=== PATIENT | male | born 1980 | race African-American/Black ===

== ENCOUNTER 2017-07-04 21:32 | Inpatient (IN) | payer OTHER ==
[2017-07-04] MEDS ORDERED: Heparin VIAL(*) 5000 UNITS/ML VIAL (FIVE THOUSAND) ONE (21:35)
[2017-07-04] MEDS ORDERED: Ticagrelor* 90 MG TAB PO ONE (21:39)
[2017-07-04] MEDS ORDERED: VERAPAMIL 2.5 MG/ML 4 ML VIAL ONE (21:50)
[2017-07-04] MEDS ORDERED: Heparin(*) 1000 UNIT/ML 10 ML VIAL CATH LAB IV ONE (21:50)
[2017-07-04] MEDS ORDERED: nitroGLYCERIN DRIP* 250 ML ONE (21:50)
[2017-07-04] MEDS ORDERED: Midazolam* 1 MG/ML 5 ML VIAL (5 MG) ONE (21:51)
[2017-07-04] MEDS ORDERED: fentaNYL* 50 MCG/ML 2 ML VIAL (100 MCG VIAL) ONE (21:51)
[2017-07-04] MEDS ORDERED: Heparin 2 UNITS/ML IVPREMIX* 2,000 ML IV ONE (21:51)
[2017-07-04] MEDS ORDERED: Lidocaine 1% INJ* 10 MG/ML 30 ML SDV ONE (21:51)
[2017-07-04] MEDS ORDERED: Iohexol 350 (CONTRAST) 200 ML MDV IV ONE (21:51)
[2017-07-04 21:58] LABS: Hematocrit 45 % (42-52); Hemoglobin 15.4 g/dl (14.0-18.0); Mean Corpuscular HGB Conc 35 g/dl (31-36); Mean Corpuscular Hemoglobin 31 pg (27-31); Mean Corpuscular Volume 90 fL (80-94); Mean Platelet Volume 9 um3 (7.4-10.4); Red Blood Count 4.98 10^6/ul (4.0-5.4); Red Cell Distribution Width 14 % (10.5-15); White Blood Count 15.2 10^3/ul (3.5-10.8)
[2017-07-04] MEDS ORDERED: Heparin VIAL(*) 5000 UNITS/ML VIAL (FIVE THOUSAND) IV ONE (22:00)
[2017-07-04 22:14] LABS: Albumin 4.6 g/dL (3.2-5.2); BUN/Creatinine Ratio 8.7 (8-20); Calcium 9.9 mg/dL (8.6-10.3); EGFR African American 74.2 (>60); EGFR Non-African American 57.7 (>60); Globulin 3.1 g/dL (2-4); Magnesium 2.4 mg/dL (1.9-2.7); Potassium 3.9 mmol/L (3.5-5.0); Total Bilirubin 0.7 mg/dL (0.2-1.0); Total Protein 7.7 g/dL (6.4-8.9)
--- NOTE | 2017-07-04 22:16 | RAD ---
Indication: Chest pain. STEMI. Comparison: No relevant prior exams available on the [facility] [place] for comparison. Technique: Upright AP 2148 hours Report: Subcutaneous pacemaker pads in place. Negative for cardiomegaly. Unremarkable central pulmonary vasculature. No focal pulmonary lesion, compelling alveolar consolidation, pleural effusion, pneumothorax. IMPRESSION: No evidence for pulmonary edema or other acute cardiac or pulmonary process.
[2017-07-04 22:21] LABS: Troponin I 4.75 ng/mL (<0.04)
[2017-07-04 22:38] LABS: Hematocrit 43 % (42-52); Hemoglobin 14.7 g/dl (14.0-18.0); Mean Corpuscular HGB Conc 34 g/dl (31-36); Mean Corpuscular Hemoglobin 30 pg (27-31); Mean Corpuscular Volume 89 fL (80-94); Mean Platelet Volume 8 um3 (7.4-10.4); Red Blood Count 4.83 10^6/ul (4.0-5.4); Red Cell Distribution Width 14 % (10.5-15); White Blood Count 14.1 10^3/ul (3.5-10.8)
[2017-07-04 22:39] LABS: Benzodiazepine Urine Screen None Detected (None Detect)
[2017-07-04 22:52] LABS: BUN/Creatinine Ratio 10.6 (8-20); Calcium 9.2 mg/dL (8.6-10.3); EGFR African American 102.8 (>60); EGFR Non-African American 79.9 (>60); Potassium 3.6 mmol/L (3.5-5.0)
[2017-07-04] MEDS ORDERED: NS 0.9% 1000 ML* 1,000 ML IV SCH (23:15)
[2017-07-04] MEDS ORDERED: Isosorbide Mononitrate ER TAB* 30 MG ONE (23:32)
[2017-07-04] MEDS ORDERED: Acetaminophen TAB* 325 MG PO PRN (23:32)
[2017-07-04] MEDS ORDERED: Zolpidem TAB* 10 MG PO PRN (23:33)
[2017-07-04] MEDS ORDERED: Metoprolol Tartrate TAB* 25 MG ONE (23:33)
[2017-07-04] MEDS: Isosorbide Mononitrate ER TAB* 30 MG PO SCH (23:34)
[2017-07-04] MEDS ORDERED: Isosorbide Mononitrate ER TAB* 30 MG PO SCH (23:45)
[2017-07-04] MEDS ORDERED: Metoprolol Tartrate TAB* 25 MG PO SCH (23:45)
[2017-07-05] MEDS ORDERED: nitroGLYCERIN DRIP* 250 ML ONE (01:52)
[2017-07-05] MEDS ORDERED: Al Hydrox/Mg Hydrox/Simet LIQ* 30 ML UDC ONE (02:15)
[2017-07-05] MEDS ORDERED: oxyCODONE/Acetamin 5/325 MG* TAB ONE (02:15)
[2017-07-05] MEDS ORDERED: Omeprazole CAP* 20 MG PO SCH (02:20)
[2017-07-05] MEDS ORDERED: oxyCODONE/Acetamin 5/325 MG* TAB PO PRN (02:22)
[2017-07-05] MEDS ORDERED: nitroGLYCERIN DRIP* 25,000 MCG in PREMIX* 0 ML IV SCH (03:00)
[2017-07-05] MEDS ORDERED: NS 0.9% 1000 ML* 1,000 ML IV SCH (04:00)
[2017-07-05 04:56] LABS: Hematocrit 40 % (42-52); Hemoglobin 13.8 g/dl (14.0-18.0); Mean Corpuscular HGB Conc 34 g/dl (31-36); Mean Corpuscular Hemoglobin 31 pg (27-31); Mean Corpuscular Volume 90 fL (80-94); Mean Platelet Volume 8 um3 (7.4-10.4); Red Blood Count 4.47 10^6/ul (4.0-5.4); Red Cell Distribution Width 14 % (10.5-15); White Blood Count 11.2 10^3/ul (3.5-10.8)
[2017-07-05 05:12] LABS: Albumin 3.9 g/dL (3.2-5.2); BUN/Creatinine Ratio 8.8 (8-20); Calcium 8.6 mg/dL (8.6-10.3); EGFR African American 93.4 (>60); EGFR Non-African American 72.6 (>60); Globulin 2.3 g/dL (2-4); HDL Cholesterol 25.7 mg/dL; Potassium 3.5 mmol/L (3.5-5.0); Total Bilirubin 0.6 mg/dL (0.2-1.0); Total Protein 6.2 g/dL (6.4-8.9)
[2017-07-05 05:18] LABS: Troponin I 54.15 ng/mL (<0.04)
--- NOTE | 2017-07-05 06:46 | ED ---
Juyd Odell Rebecca, scribed for Nga Boyleuel on 07/04/17 at 2151 . HPI Chest Pain - HPI Summary HPI Summary: Pt is a 37 y/o M BIBA who presents to ED c/o central CP. Pain began suddenly at 1845 tonight while washing his leg and has been constant since onset. Pain is currently mild, ranked 2/10. He was treated with 4 81 mg ASA and 2 NTG SOFTWARE QUALITY MANAGER. Additionally c/o N/V. No prior similar episodes of CP. No PMHx or FHx CAD. Only daily medication is Ibuprofen for his back pain. - History of Current Complaint Chief Complaint: EDChestPainROMI Hx Obtained From: Patient Onset/Duration: Started Hours Ago, Still Present Time of Onset: 18:45 Timing: Constant Current Severity: Mild Pain Intensity: 2 Pain Scale Used: 0-10 Numeric Chest Pain Location: Mid Sternal Aggravating Factor(s): Nothing Alleviating Factor(s): Nothing Associated Signs and Symptoms: Positive: Nausea, Vomiting PMH/Surg Hx/FS Hx/Imm Hx Endocrine/Hematology History: Denies: Hx Diabetes Cardiovascular History: Denies: Hx Coronary Artery Disease Infectious Disease History: Yes Infectious Disease History: Denies: Traveled Outside the [place] in Last 30 Days - Family History Known Family History: Negative: Cardiac Disease - Social History Alcohol Use: None Substance Use Type: Reports: Marijuana Smoking Status (MU): Unknown if Ever Smoked Review of Systems Positive: Chest Pain Positive: Vomiting, Nausea All Other Systems Reviewed And Are Negative: Yes Physical Exam - Summary Physical Exam Summary: Appearance: Well appearing, no pain distress Skin: warm, dry, reflects adequate perfusion Head/face: normal Eyes: EOMI, ESVIN ENT: normal Neck: supple, nontender Respiratory: CTA, breath sounds present Cardiovascular: RRR, pulses symmetrical Abdomen: nontender, soft Bowel: present Musculoskeletal: normal, strength/ROM intact Neuro: normal, sensory motor intact, A&Ox3 Triage Information Reviewed: Yes Vital Signs On Initial Exam: Initial Vitals Temp Pulse Resp BP Pulse Ox 98.2 F 92 23 128/94 97 07/04/17 21:41 07/04/17 21:41 07/04/17 21:41 07/04/17 21:41 07/04/17 21:41 Vital Signs Reviewed: Yes Diagnostics - Vital Signs Vital Signs Temp Pulse Resp BP Pulse Ox 07/04/17 21:41 98.2 F 92 23 128/94 97 - Laboratory Result Diagrams: 07/04/17 21:50 07/04/17 21:50 Lab Statement: Any lab studies that have been ordered have been reviewed, and results considered in the medical decision making process. - Radiology CXR Xray Interpretation: No Acute Changes - No evidence for pulmonary edema or other acute cardiac or pulmonary process. ED phsyicain reviewed radiology report and agrees. Radiology Interpretation Completed By: Radiologist - EKG 2132 Cardiac Rate: NL - [address] Segment: Non-Specific - ST elevations in the inferior leads EKG Interpretation: Inferior wall MN Chest Pain Course/Dx - Course Assessment/Plan: Pt is a 37 y/o M BIBA who presents to ED c/o central CP. Pain began suddenly at 1845 tonight while washing his leg and has been constant since onset. Pain is currently mild, ranked 2/10. He was treated with 4 81 mg ASA and 2 NTG SOFTWARE QUALITY MANAGER. Additionally c/o N/V. No prior similar episodes of CP. No PMHx or FHx CAD. Only daily medication is Ibuprofen for his back pain. CXR reveals no acute findings. EKG shows inferior lead ST elevations with an inferior wall MN. STEMI code called at 2130. In the ED course, pt received Heparin and Brilinta. Discussed care of pt with Dr. Ortega at 2137 who accepts pt for admisison and will evaluate the pt in the ED. Pt will be admitted to Dr. Ortega's care with Dx of chest pain and inferior wall STEMI. He understands and agrees. - Diagnoses Provider Diagnoses: Chest pain, ST elevation myocardial infarction (STEMI) of inferior wall During the Visit The Following Alert/Code Occurred: STEMI - Called at 2130 - Provider Notifications Discussed Care Of Patient With: Holden Ortega Time Discussed With Above Provider: 21:38 Instructed by Provider To: Other - Accepts pt and will evaluate him in the ED. - Critical Care Time Critical Care Time: 30-74 min - 30 minutes Discharge - Discharge Plan Condition: Stable Disposition: ADMITTED TO [facility] The documentation as recorded by the Judy wiley Rebecca accurately reflects the service I personally performed and the decisions made by , Ross Boyle.
[2017-07-05] MEDS ORDERED: Atorvastatin* 80 MG TAB PO ONE (07:23)
[2017-07-05] MEDS ORDERED: Potassium Chlor TAB* 20 MEQ TAB.ER PO ONE (07:27)
[2017-07-05] MEDS: Aspirin EC Low Dose* 81 MG TAB.EC PO SCH ×2 (08:08→08:55)
[2017-07-05] MEDS: Captopril TAB* 12.5 MG PO SCH ×2 (08:50→13:06)
[2017-07-05] MEDS ORDERED: Metoprolol Tartrate TAB* 25 MG PO SCH (09:00)
[2017-07-05] MEDS ORDERED: Pantoprazole TAB (NF) 40 MG TAB PO SCH (09:00)
[2017-07-05] MEDS ORDERED: Ticagrelor* 90 MG TAB PO SCH (09:00)
[2017-07-05] MEDS: Isosorbide Mononitrate ER TAB* 30 MG PO SCH (09:59)
[2017-07-05 10:58] LABS: Troponin I 43.62 ng/mL (<0.04)
--- NOTE | 2017-07-05 11:03 | ECHO ---
Patient: LIZZIE CORRIGAN [id number] [facility] Rec#: [id number] : 1980 Date: 07/05/2017 Age: 37y Height: 177.8 cm / 70.0 in Weight: 91.63 kg / 202.0 lbs Sex: M BSA: 2.1 Room#: [facility] Admit Date#: 07/04/2017 Type: Inpatient Referring: Holden Ortega MD Reading: Holden Ortega MD Education Department Registrar: JANNA Education Department Registrar: Ciara Akins RDCS Transthoracic Echocardiogram Indication: STEMI BP: 100/68 Rhythm: Bradycardia Findings History: From [facility] [place] with STEMI. + family hx, nonsmoker. Technical Comments: The study quality is good. Completed at 0758. Left Ventricle: Mild concentric left ventricular hypertrophy is observed. There is mild to moderately decreased left ventricular systolic function. There is global mild to moderate hypokinesis with moderate to severe focal inferior low posterolateral wall hypokinesis. The estimated ejection fraction is 40-45%. There is no consistent Doppler evidence of clinically significant diastolic dysfunction. Left Atrium: The left atrial chamber size is normal. Right Ventricle: The right ventricle is mildly dilated. The right ventricular global systolic function is mildly reduced. Right Atrium: The right atrial cavity size is normal. A patent foramen ovale is visualized. A patent foramen ovale is demonstrated by color Doppler and agitated contrast. There is evidence of an atrial septal aneurysm. Aortic Valve: The aortic valve is trileaflet. There is no evidence of aortic regurgitation. There is no evidence of aortic stenosis. Mitral Valve: The mitral valve leaflets appear normal. The anterior leaflet of the mitral valve is thickened. There is prolapse of the anterior leaflet of the mitral valve. The degree of prolapse appears to be very mild at best. There is a trace of mitral regurgitation. There is no evidence of mitral stenosis. Tricuspid Valve: The tricuspid valve leaflets are normal. There is trace tricuspid regurgitation. Unable to estimate the right ventricular systolic pressure. There is no tricuspid stenosis. Pulmonic Valve: The pulmonic valve appears normal. There is moderate pulmonic regurgitation. There is no pulmonic stenosis. Pericardium: The pericardium appears normal. Aorta: There is no dilatation of the ascending aorta. There is no dilatation of the aortic arch. There is no dilation of the aortic root. Pulmonary Artery: The main pulmonary artery appears normal. Venous: The venous system is not well visualized. Contrast: Normal saline was used as contrast for the bubble study. Intravenous contrast was used to help determine presence of intracardiac shunting. Conclusions Mild concentric left ventricular hypertrophy is observed. There is mild to moderately decreased left ventricular systolic function. There is global mild to moderate hypokinesis with moderate to severe focal inferior low posterolateral wall hypokinesis. The estimated ejection fraction is 40-45%. The right ventricle is mildly dilated. The right ventricular global systolic function is mildly reduced. A patent foramen ovale is demonstrated by color Doppler with right to left flow on bubble study. There is evidence of an atrial septal aneurysm. There is prolapse of the anterior leaflet of the mitral valve. The degree of prolapse appears to be very mild at best. There is a trace of mitral regurgitation. There is trace tricuspid regurgitation. There is moderate pulmonic regurgitation. No reports from prior studies are offered for comparison. Measurements Name Value Normal Range RVIDd (AP) 2D 2.7 cm (0.9 - 2.6) RVDdMajor (2D) 4.8 cm (2.2 - 4.4) RAd ISD 4CH 5.4 cm (3.4 - 4.9) RA (A4C)W 3.9 cm (2.9 - 4.6) IVSd (2D) 1.3 cm (0.6 - 1) LVPWd (2D) 1 cm (0.6 - 1) LVIDd (2D) 3.9 cm (3.6 - 5.4) LVIDs (2D) 2.9 cm - LV FS (2D) 24 % (25 - 45) Aortic Annulus 2 cm (1.4 - 2.6) Ao root diameter (2D) 3 cm (2.1 - 3.5) Ascending Ao 2.7 cm (2.1 - 3.4) Aortic arch 2.6 cm (1.8 - 3.4) Descending Ao 0.5 cm - LA dimension (AP) 2D 2.9 cm (2.3 - 3.8) LAd ISD 4CH 5.2 cm (2.9 - 5.3) LA ISD 4CH W 3.8 cm (2.5 - 4.5) Name Value Normal Range LA ESV SP 4CH (A/L) 46 ml - LA ESV SP 2CH (A/L) 37 ml - LA ESV BP (A/L) 46 ml - LA ESV BP (A/L) index 21.82 ml/m2 - LA ESV SP 4CH (MOD) 42 ml - LA ESV SP 2CH (MOD) 36 ml - Name Value Normal Range MV E-wave Vmax 0.7 m/sec - MV deceleration time 220 msec - MV A-wave Vmax 0.6 m/sec - MV E:A ratio 1.17 ratio - LV septal e' Vmax 0.1 m/sec - LV lateral e' Vmax 0.11 m/sec - LV E:e' septal ratio 7 ratio - LV E:e' lateral ratio 6.36 ratio - Name Value Normal Range AV Vmax 1 m/sec - AV VTI 22 cm - AV peak gradient 4.3 mmHg - AV mean gradient 1.84 mmHg - LVOT Vmax 0.8 m/sec - LVOT VTI 17.2 cm - LVOT peak gradient 2.59 mmHg - LVOT mean gradient 1.29 mmHg - Name Value Normal Range PV Vmax 0.9 m/sec - PV peak gradient 3.56 mmHg -
[2017-07-05] MEDS ORDERED: NS 0.9% 250 ML* 250 ML IV ONE (11:15)
[2017-07-05] MEDS: NS 0.9% 1000 ML* 1,000 ML IV SCH ×2 (11:57→14:47)
[2017-07-05] MEDS ORDERED: Enoxaparin(*) 40 MG/0.4 ML SYR SUBCUT SCH (12:00)
--- NOTE | 2017-07-05 12:38 | HP ---
ADMISSION HISTORY AND PHYSICAL: DATE OF ADMISSION: 07/04/17 CHIEF COMPLAINT: The patient with chest discomfort and abnormal EKG suggesting an acute inferior wa ll ST-segment elevation myocardial infarction. HISTORY OF PRESENT ILLNESS: The patient is a 37-year-old gentleman with no prior known cardiac hist ory, specifically denies any history of myocardial infarction, congestive heart failure, or signific ant heart rhythm disturbance. He was in his usual state of health. He currently resides in the [facility] correction facility. He states that he was in the shower, bent over washing his lower extremity and when he got up he became profoundly lightheaded, diaphoretic and started developing chest pressu re sensation, sort of like an indigestion feeling. It radiated up to throat but not totally into th e jaw. It also went to the right arm as well. At that point, he was not sure what was going on. Amy pfeiffer hesitated in seeking medical attention at that time that was about 6:30. By 8:00 to 8:30, it was not getting any better. He called his brother and explained that he was going to go to the medical facility in the correctional facility. He did that, there they gave him 2 nitroglycerin and perform ed an EKG. They summoned the EMS. The EMS brought him in as an acute ST segment elevation inferior wall myocardial infarction. En route, the patient stated his symptoms were getting better and on p resentation in the emergency room the symptoms were down to about a 3-4 out of 10 where they had bee n a 9. A repeat EKG still had ST-segment elevation present in the inferior leads, mild reciprocal c hanges but it was better than before, but symptoms persisted. He had a bolus of heparin. A full do se of aspirin was given, 180 mg of Brilinta. On my arrival, he is still with a [id number] dis comfort on the EKG, decision was made to proceed to the cardiovascular laboratory. I asked him quit e frankly multiple times if he had done any drug use, specifically something like cocaine, and he st ates that he only uses the marijuana and smokes something called spice, which he said was a local ma rijuana. PAST MEDICAL HISTORY: Only significant for lower back pain and he has been on nonsteroidal antiinfl ammatories. PAST SURGICAL HISTORY: None. ALLERGIES: He denies any drug allergies. REVIEW OF SYSTEMS: Pertinent to proceeding to the cardiovascular laboratory. He denies any history of kidney issues. He denies any prior known dye allergy, although I am not sure he was exposed to it. He denies any hematochezia, hematemesis or hematuria. He denies any stroke or TIA in the past. PHYSICAL EXAMINATION VITAL SIGNS: When I saw him in the emergency room revealed blood pressure 130/92, pulse in 80s to 9 0s, respirations 23 with an O2 saturation of 97%. HEENT: Conjunctivae pink. Sclerae clear. Mouth reveals moist mucosa. NECK: Supple without increased JVP. LUNGS: Revealed no accessory muscle usage. There was no active rales, rhonchi or wheezes. HEART: Revealed no visible heaves. No palpable heaves or thrills. Normal S1, S2. I did not apprec iate a significant murmur. ABDOMEN: Soft, nontender. EXTREMITIES: Without edema. There were good pulses throughout. The right radial artery had a Jemma eau sign of 8B. MUSCULOSKELETAL: The patient moves all extremities appropriate. NEUROLOGIC: The patient was alert, and oriented with normal mentation. PSYCHIATRIC: Patient had normal affect. LABORATORY DATA: Electrocardiogram provided from either the paramedics or the correction facility revealed ST-segment elevations in the inferior leads with reciprocal changes in the lateral and also suggestion of posterior wall involvement with ST-segment depression in V1 and V2. Repeat EKG in the emergency room had significant artifact but there was mild ST- segment elevation s till present inferiorly with subtle reciprocal changes. OVERALL ASSESSMENT: The patient presents with what appears as an acute ST segment elevation myocard ial infarction, perhaps made somewhat better with nitroglycerin. At this point in time the risks and benefits of cardiac catheterization intervention were explained. He understood them and wished to proceed. He already received as mentioned his aspirin, Brilinta and heparin. Further management wi ll be made pending results of the cardiac catheterization. [id number]/[facility] #: [id number]
--- NOTE | 2017-07-05 13:19 | CATH ---
CARDIAC CATHETERIZATION REPORT: DATE OF PROCEDURE: 07/04/17 INDICATION FOR THE PROCEDURE: Patient presents with acute ST segment elevation inferior wall myocardial infarction. PROCEDURES: Coronary arteriography, left ventriculography, ascending aortography, left heart cath. DESCRIPTION OF PROCEDURE: The patient was interviewed and examined in the emergency room where the risks and benefits were explained. He already received heparin bolus of 5000 in addition to 180 mg of Brilinta, he received a full 325 mg of aspirin. The risks and benefits were explained. He understood them and wished to proceed. He was brought to the cardiovascular laboratory where a formal time- out was performed. The right radial artery was assessed and found to be an eligible site for an approach and as such the patient was prepped and draped in sterile fashion. The right radial artery area was anesthetized with 1% lidocaine. Right radial artery was cannulated and a 6.5 sheath was placed. Coronary arteriography was performed utilizing a TIG4 5- Mauritian diagnostic catheter. Central aortic pressure and ascending aortography was performed utilizing a 5-Mauritian PIG Performa radial catheter. The catheter was passed across the aortic valve into the left ventricle and left ventricular pressure was recorded and left ventriculography was performed utilizing a total of 32 cc of Omnipaque dye at the rate of 16 cc/sec. The ascending aortography was performed utilizing a total of 40 cc at a rate of 20 cc per second. At the end of the case, the catheter was removed and sheath was removed and hemostasis was obtained with a Vasc Band. The total contrast used was 150 cc of Omnipaque dye. The radiation exposure included 13.9 minutes of fluoro time. The air kerma radiation was 993 milligray. The DAP radiation was 6758 microgray per meter squared. RESULTS: HEMODYNAMIC DATA: Left heart cath - central aortic pressure was recorded at 106 /71, with a mean of 87. Left ventricular pressure was 110 over left ventricular end-diastolic pressure of 10 to 12 mmHg. LEFT VENTRICULOGRAPHY: Performed in the SIMENTAL projection, revealed mild global left ventricular hypokinesis with hypokinesis of the iwr-bd-wyimso anterior wall and mid- to-distal inferior wall, with overall ejection fraction in the 40 % to 45% range. No significant mitral regurgitation was identified. ASCENDING AORTOGRAPHY: Performed in the TERESA projection, revealed a normal sized ascending aorta. There was no obvious dye hang-up within the ascending aortic area and no definitive flap was seen. CORONARY ARTERIOGRAPHY: A. Left coronary artery: 1. Left main - widely patent. 2. Left anterior descending artery - there was no significant lesion seen throughout the course of the left anterior descending artery. It supplied a mid diagonal branch, which appeared to show an intramyocardial branch draining into the left ventricle as an anatomical variation. There was no significant lesion seen throughout the course of the left anterior descending artery or its diagonal branch. There was a thin high first diagonal branch, which was very small in caliber. 3. Circumflex artery - a nondominant vessel with a very thin trifurcation marginal branch, short in nature. This was followed by a moderate sized first obtuse marginal branch and a larger size low lying obtuse marginal branch extending to the low posterolateral, toward apical region, continuing on to a very small low posterior left ventricular branch. The distal most portion of the obtuse marginal branch revealed a possible thrombus subtending a very small area of myocardium. B. Right coronary artery - a dominant vessel supplying the PDA and a thin posterior left ventricular branch. There was no significant lesion seen within the body of the right coronary artery; however, SILVINA-2 to 3 flow was seen throughout the PDA. The most distal portion of the PDA had slow flow that improved with further injections. In the TERESA projection, there is a question of a thin proximal branch that could not be well defined, that may be totally occluded, but clearly it is small in caliber and at best supplying the right ventricle. No other significant lesion was seen throughout the course of the vessel. The acute marginal branches supplying the right ventricular surface, in general appeared to be somewhat thin in caliber. OVERALL ASSESSMENT: No significant stenotic coronary artery disease in the major artery branches or bodies of the major arteries, with slow flow seen in the right system, particularly in the PDA territory and possible distal embolus to the obtuse marginal branch. Global left ventricular hypokinesis noted, as described above with the mid to distal inferior wall seeming to correlate with the distal circumflex obtuse marginal branch. No definitive evidence of a dilated ascending aorta or a clear flap with persistent staining seen. At this point in time, medical management will be pursued with dual antiplatelet therapy in addition to beta- etienne therapy for LV dysfunction as well as low- dose nitrates for possible spasm. Echocardiogram will be scheduled for the morning to reassess cardiac valves and LV function and get a better look at the right-sided chambers. [id number]/[facility] #: [id number] MTDD
--- NOTE | 2017-07-05 14:46 | RAD ---
INDICATION: Patent foramen ovale rule out lower extremity DVT. COMPARISON: There are no prior studies available for comparison. TECHNIQUE: Multiple real-time, color flow and Doppler tracings of both lower extremities were obtained. FINDINGS: The common femoral, femoral, profunda femoral and popliteal veins all demonstrate normal compressibility, augmentation with compression and phasic response with respiration. The posterior tibial and peroneal veins demonstrate normal compressibility and augmentation with compression. IMPRESSION: NO EVIDENCE FOR DEEP VENOUS THROMBOSIS.
[2017-07-05] MEDS ORDERED: Enoxaparin(*) 60 MG/0.6 ML SYR SUBCUT ONE (15:00)
--- NOTE | 2017-07-05 16:28 | TRS ---
DATE OF ADMISSION: 07/04/2017. DATE OF TRANSFER: 07/05/2017. FINAL DIAGNOSIS: ST segment elevation anterior wall myocardial infarction. SECONDARY DIAGNOSES: Patent foramen ovale, smoking abuse, history of lower back discomfort. HISTORY OF PRESENT ILLNESS: The patient is a pleasant, 37-year-old gentleman who presented to [facility] from the correctional facility at [place] with an acute ST segment elevation inferior wall myocardial infarction. Please refer to the history and physical for complete details of his presentation. In the emergency room, he was assessed to still have ongoing symptoms with an EKG that had improved, but still mild ST segment elevations and as such he went to the cardiovascular laboratory. In the cardiovascular laboratory, he was found to have a right coronary artery which displayed slow flow in the posterior descending artery without a critical lesion present. The most distal portion of the artery was difficult to assess and small in caliber, but there was no acute cut off point seen. The left coronary artery with respect to the left anterior descending artery and the diagonal branches only showed a congenital finding with the diagonal branch having a branch off of it draining into the left ventricle. The circumflex initially was evaluated and thought to be normal with no significant disease. On review of it today, after discussion with Dr. San, there appeared to be a possible thrombotic occlusion to the most distal portion of the obtuse marginal branch. Left ventriculogram showed diffuse hypokinesis to the mid inferior wall, perhaps worse than the other areas, overall EF about 40 to 45 percent. Echocardiogram was done today which revealed right ventricular mild dilatation with possibly mild to moderate global hypokinesis. The left ventricle also had mild global hypokinesis. There appeared to be a patent foramen ovale with color flow showing left to right flow. Bubble study showed right to left flow as well. Over night, his cardiac enzymes peaked with a CPK of 2213, an MB of 138 and a troponin of 54. His EKG had continued to evolve with poor R waves in the inferior leads versus Q waves with a small Q in lead 2. The EKG otherwise had minimal residual J point elevation, extremely subtle in nature and nonsignificant. The patient also underwent a venous study to rule out the presence of lower extremity blood clots and there was no evidence of deep venous thrombosis in the lower extremities. The patient also had a D-dimer that was only 205. Discussion was had with Dr. Carl San in light of the patent foramen ovale and the possible thrombotic event, and as such he was concerned at the possibilities of this being a cause of his cardiac event given the history of how his event occurred. As such, we discussed the issue of permanent anticoagulation versus having the patent foramen ovale closed (given his young age). Dr. San accepted the patient in transfer up to [facility] for ongoing evaluation of the findings suggesting a patent foramen ovale The patient will be transferred up to the Hospitalist Service as per Dr. San's instructions. I personally spoke with Dr. Prabhakar (accepting resident) regarding the case and gave him all of the pertinent information for transfer. MEDICATIONS AT THE TIME OF TRANSFER: 1. Aspirin 81 mg a day. 2. Atorvastatin 80 mg a day. 3. Lovenox 90 mg q.12 hours. 4. Imdur 30 mg, which may have to be held due to the drop in blood pressure when he got that this morning and the RV mild to moderate hypokinesis. 5. Metoprolol 25 mg twice a day. 6. Pantoprazole 40 mg a day. 7. Ticagrelor 90 mg twice a day. 8. Percocet one tablet as needed for pain q4hrs. 9. Ambien 10 mg PRN insomnia IMAGING STUDIES: The patient had a chest x-ray performed here as well that basically showed no evidence of pulmonary edema or other cardiac or pulmonary process. Of note, one other issue in the laborer yard, ascending aortography was performed because of the patient's complaint of the chest discomfort because of mild tortuosity in negotiating from the brachiocephalic artery into the ascending aorta. There was no reatined contrast in the wall of the ascending aorta to suggest an ascending aortic dissection. PHYSICAL EXAMINATION: Physical examination at the time of discharge is unchanged from my progress note of today. Please refer to that for details. CONDITION ON TRANSFER: The patient was stable at the time of transfer. [id number]/[facility] #: [id number] [facility]ENTER[facility]agan
[2017-07-05 18:08] VITALS: BP 94/64
[2017-07-05] MEDS ORDERED: Atorvastatin* 40 MG TAB PO SCH (21:00)
[2017-07-05] MEDS ORDERED: Enoxaparin(*) 100 MG/ML SYR SUBCUT SCH (23:00)
== END 2017-07-05 19:00 | disposition short-term general hospital (02) | DRG 190 ==
LOC: ED 21:32 → CHICATH 22:05 → ICU 22:32 → EEVIPCON 22:32
PROVIDERS: ADMIT Internal Medicine Cardiovascular Disease; ATTEND Internal Medicine Cardiovascular Disease
PROC: B2151ZZ Fluoroscopy of Left Heart using Low Osmolar Contrast (ICD-10-PCS; 2017-07-04)
PROC: 4A023N7 Measurement of Cardiac Sampling and Pressure, Left Heart, Percutaneous Approach (ICD-10-PCS; 2017-07-04)
PROC: B41D1ZZ Fluoroscopy of Aorta and Bilateral Lower Extremity Arteries using Low Osmolar Contrast (ICD-10-PCS; 2017-07-04)
PROC: B2111ZZ Fluoroscopy of Multiple Coronary Arteries using Low Osmolar Contrast (ICD-10-PCS; principal; 2017-07-04 22:00)
DX: I21.19 ST elevation (STEMI) myocardial infarction involving other coronary artery of inferior wall (principal); Q21.1 Atrial septal defect; M54.9 Dorsalgia, unspecified; I77.1 Stricture of artery; Z79.82 Long term (current) use of aspirin; F17.200 Nicotine dependence, unspecified, uncomplicated; Z79.01 Long term (current) use of anticoagulants
CPT/HCPCS: 36415; 71010; 80048; 80053; 80061; 80307; 82550; 82553; 83735; 83880; 84484; 85025; 85379; 85610; 85730; 87641; 93005; 93306; 93970; 99156; 99157; A9270-GY; J1644; J1650; J2001; J2250; J3010